=== PATIENT | male | born 1955 | race African-American/Black ===

== ENCOUNTER 2023-07-03 09:11 | Inpatient (IN) | payer OTHER, MEDICARE ==
[~2023-07-03] VITALS: Ht 195.6 cm; Wt 78.6 kg
[2023-07-03] MEDS ORDERED: ONDANSETRON HCL 4MG/2ML INJ IV STA (09:39)
[2023-07-03] MEDS ORDERED: MORPHINE SULFATE 4 MG/ML CPJ (NOT FOR IM USE) IV STA (09:39)
[2023-07-03] MEDS ORDERED: SODIUM CHLORIDE 0.9% 1,000 ML IV ONE ×3 (09:45→15:45)
[2023-07-03 12:33] LABS: HEMATOCRIT. 29.1 % (42.0-52.0); HEMOGLOBIN. 9.9 g/dL (14.0-18.0); MEAN CORPUSCULAR HEMOGLOBIN 23.4 pg (28.0-32.0); MEAN CORPUSCULAR VOLUME 68.7 fL (80.0-94.0); MEAN PLATELET VOLUME 8.2 fl (7.4-10.4); PLATELET 69 x1000/uL (130-400); RED BLOOD CELL COUNT 4.23 mill/uL (4.7-6.1); RED CELL DISTRIBUTION WIDTH 15.5 % (11.6-14.6)
[2023-07-03 12:46] LABS: DIFFERENTIAL COMMENT 1
[2023-07-03 13:43] LABS: NUCLEATED RED BLOOD CELLS 5 /100 WBC; PLATELET ESTIMATE DECREASED
[2023-07-03 13:45] LABS: ANISOCYTOSIS 2+; TARGET CELLS 1+
[2023-07-03] MEDS ORDERED: CEFTRIAXONE 1GM PREMIX 50 ML IV ONE (13:45)
[2023-07-03 15:14] LABS: ALANINE AMINOTRANSFERASE 52 IU/L (10-49); ALBUMIN 4.2 g/dL (3.2-4.8); ASPARTATE AMINOTRANSFERASE 75 IU/L (<34); CALCIUM 8.8 mg/dL (8.7-10.4); CARBON DIOXIDE 18 mEq/L (21-32); CHLORIDE 83 mEq/L (98-107); CREATININE 1.9 mg/dL (0.6-1.3); GLUCOSE 84 mg/dL (70-105); PROTEIN TOTAL 7.8 g/dL (6.0-8.3); UREA NITROGEN BLOOD 46 mg/dL (9-23)
[2023-07-03 15:21] LABS: SODIUM 117 mEq/L (136-145)
[2023-07-03] MEDS ORDERED: ACETAMINOPHEN 325MG TABLET PO PRN (17:45)
[2023-07-03] MEDS ORDERED: MORPHINE SULFATE 2 MG/ML CPJ (NOT FOR IM USE) IV PRN (17:45)
[2023-07-03] MEDS ORDERED: DIPHENHYDRAMINE 50MG/ML VIAL IV PRN (17:45)
[2023-07-03] MEDS ORDERED: MAGNESIUM/ALUMINUM HYDROXIDE/SIMETHICONE 30ML UDC PO PRN (17:45)
[2023-07-03] MEDS ORDERED: CLONIDINE 0.1MG TABLET PO PRN (17:45)
[2023-07-03] MEDS ORDERED: GUAIFENESIN 200MG/10ML SUGAR FREE UDC PO PRN (17:45)
[2023-07-03] MEDS ORDERED: ONDANSETRON HCL 4MG/2ML INJ IV PRN (17:45)
[2023-07-03] MEDS ORDERED: DOCUSATE SODIUM 100MG CAPSULE PO PRN (17:45)
[2023-07-03] MEDS ORDERED: HYDROCODONE/ACETAMINOPHEN 7.5/325MG TABLET PO PRN (18:00)
[2023-07-03] MEDS ORDERED: TRAMADOL 50MG TABLET PO PRN (18:00)
[2023-07-03] MEDS ORDERED: ENOXAPARIN 40MG/0.4ML SYR SUBCUT SCH (20:00)
[2023-07-04] MEDS: SODIUM CHLORIDE 0.9% 1,000 ML IV SCH ×3 (02:52→20:37)
[2023-07-04 05:00] VITALS: BP 97/61; PULSE 94; RESP 20; TEMP 98.4
[2023-07-04 05:03] VITALS: BP 97/61; PULSE 94; RESP 20; TEMP 98.4
[2023-07-04] MEDS ORDERED: LATA2.5D14 EACHEYE (05:06)
[2023-07-04 08:00] VITALS: BP 91/53; PULSE 89; RESP 20; TEMP 98.3
[2023-07-04] MEDS: ASPIRIN 81MG EC TABLET PO SCH (09:58)
[2023-07-04 12:00] VITALS: BP 97/61; PULSE 84; RESP 18; TEMP 97.9
[2023-07-04 12:13] LABS: CLARITY URINE CLOUDY (CLEAR); COLOR URINE YELLOW (YELLOW); GLUCOSE URINE NEGATIVE (NEGATIVE); KETONES URINE NEGATIVE (NEGATIVE); LEUKOCYTE ESTERASE URINE NEGATIVE (NEGATIVE); NITRITE URINE NEGATIVE (NEGATIVE); OCCULT BLOOD URINE 2+ (NEGATIVE); PH URINE 5.5 (4.5-8.0); PROTEIN URINE 1+ (NEGATIVE); SPECIFIC GRAVITY URINE 1.013 (1.005-1.030); UROBILINOGEN URINE 0.2 E.U./dL (0.2-1.0)
[2023-07-04] MEDS: MIDODRINE HCL 5MG TABLET PO SCH ×2 (12:17→17:16)
[2023-07-04 13:33] LABS: SQUAMOUS EPITHELIAL CELL URINE RARE /lpf (RARE/1+)
[2023-07-04 13:34] LABS: BACTERIA URINE 1+; RBC URINE 0-2 /hpf (0-2); WBC URINE 0-2 /hpf (0-2)
[2023-07-04 13:38] LABS: CLARITY URINE CLEAR (CLEAR); COLOR URINE ORANGE (YELLOW); GLUCOSE URINE NEGATIVE (NEGATIVE); KETONES URINE NEGATIVE (NEGATIVE); LEUKOCYTE ESTERASE URINE TRACE (NEGATIVE); NITRITE URINE NEGATIVE (NEGATIVE); OCCULT BLOOD URINE 3+ (NEGATIVE); PH URINE 5.5 (4.5-8.0); PROTEIN URINE 1+ (NEGATIVE); SPECIFIC GRAVITY URINE 1.011 (1.005-1.030); UROBILINOGEN URINE 0.2 E.U./dL (0.2-1.0)
[2023-07-04] MEDS ORDERED: CEFTRIAXONE 1,000 MG in DEXTROSE 5% WATER 50 ML IV SCH (14:00)
[2023-07-04 14:26] LABS: SQUAMOUS EPITHELIAL CELL URINE NONE SEEN /lpf (RARE/1+)
[2023-07-04 14:27] LABS: BACTERIA URINE 1+
[2023-07-04 16:00] VITALS: BP 95/62; PULSE 84; RESP 19; TEMP 97.9
[2023-07-04 17:30] LABS: HEMATOCRIT. 28.8 % (42.0-52.0); HEMOGLOBIN. 9.6 g/dL (14.0-18.0); MEAN CORPUSCULAR HEMOGLOBIN 23.3 pg (28.0-32.0); MEAN CORPUSCULAR HGB CONC 33.3 g/dL (31.0-37.0); MEAN CORPUSCULAR VOLUME 69.8 fL (80.0-94.0); MEAN PLATELET VOLUME 8.2 fl (7.4-10.4); PLATELET 72 x1000/uL (130-400); RED BLOOD CELL COUNT 4.13 mill/uL (4.7-6.1); RED CELL DISTRIBUTION WIDTH 15.4 % (11.6-14.6); WHITE BLOOD COUNT 11.9 x1000/uL (4.5-11.0)
[2023-07-04 17:45] LABS: DIFFERENTIAL COMMENT 1
[2023-07-04 17:54] LABS: ALANINE AMINOTRANSFERASE 55 IU/L (10-49); ALBUMIN 3.9 g/dL (3.2-4.8); ASPARTATE AMINOTRANSFERASE 142 IU/L (<34); BILIRUBIN TOTAL 2.5 mg/dL (0.1-1.0); CALCIUM 8.3 mg/dL (8.7-10.4); CARBON DIOXIDE 24 mEq/L (21-32); CHLORIDE 92 mEq/L (98-107); CHOLESTEROL 112 mg/dL (<200); CREATININE 1.8 mg/dL (0.6-1.3); GLUCOSE 87 mg/dL (70-105); HDL CHOLESTEROL 33 mg/dL (>55); LDL CHOLESTEROL 61 mg/dL (5-100); POTASSIUM 4.4 mEq/L (3.5-5.1); SODIUM 125 mEq/L (136-145); TRIGLYCERIDE 125 mg/dL (0-150); UREA NITROGEN BLOOD 51 mg/dL (9-23)
[2023-07-04 20:00] VITALS: BP 107/68; PULSE 85; RESP 18; TEMP 98.4
[2023-07-04 23:07] LABS: NUCLEATED RED BLOOD CELLS 7 /100 WBC; PLATELET ESTIMATE DECREASED
[2023-07-04 23:08] LABS: ANISOCYTOSIS 1+; HYPOCHROMASIA 1+
[2023-07-05] VITALS: BP 102/57; PULSE 77; RESP 18; TEMP 98.2
[2023-07-05 04:00] VITALS: BP 100/60; PULSE 94; RESP 18; TEMP 98.3
[2023-07-05 08:00] VITALS: BP 104/47; PULSE 87; RESP 18; TEMP 97.6
[2023-07-05] MEDS: ASPIRIN 81MG EC TABLET PO SCH (08:54)
[2023-07-05] MEDS: MIDODRINE HCL 5MG TABLET PO SCH ×3 (08:54→16:11)
[2023-07-05] MEDS: SODIUM CHLORIDE 0.9% 1,000 ML IV SCH ×2 (11:00→23:24)
[2023-07-05 11:51] VITALS: BP 132/70; PULSE 109; RESP 18; TEMP 98.4
[2023-07-05] MEDS ORDERED: CEFTRIAXONE 1,000 MG in DEXTROSE 5% WATER 50 ML IV SCH (16:00)
[2023-07-05] MEDS: CHLORPROMAZINE HCL 25 MG TABLET PO PRN (16:09)
[2023-07-05 16:10] LABS: ALANINE AMINOTRANSFERASE 40 IU/L (10-49); ALBUMIN 3.5 g/dL (3.2-4.8); ASPARTATE AMINOTRANSFERASE 76 IU/L (<34); BILIRUBIN TOTAL 1.9 mg/dL (0.1-1.0); CARBON DIOXIDE 24 mEq/L (21-32); CHLORIDE 103 mEq/L (98-107); CREATININE 1.4 mg/dL (0.6-1.3); GLUCOSE 106 mg/dL (70-105); POTASSIUM 4.3 mEq/L (3.5-5.1); PROTEIN TOTAL 6.4 g/dL (6.0-8.3); SODIUM 133 mEq/L (136-145); UREA NITROGEN BLOOD 43 mg/dL (9-23)
[2023-07-05 16:12] VITALS: BP 98/58; PULSE 85; RESP 18; TEMP 98.5
[2023-07-05 20:00] VITALS: BP 111/56; PULSE 95; RESP 18; TEMP 98.2
[2023-07-06] VITALS: BP 114/59; PULSE 88; RESP 18; TEMP 97.7
[2023-07-06 04:10] VITALS: BP 121/64; PULSE 87; RESP 18; TEMP 98
[2023-07-06 06:09] LABS: CALCIUM 8.3 mg/dL (8.7-10.4); CARBON DIOXIDE 26 mEq/L (21-32); CHLORIDE 104 mEq/L (98-107); CREATININE 1.2 mg/dL (0.6-1.3); GLUCOSE 101 mg/dL (70-105); POTASSIUM 4.5 mEq/L (3.5-5.1); SODIUM 134 mEq/L (136-145); UREA NITROGEN BLOOD 33 mg/dL (9-23)
[2023-07-06 08:00] VITALS: BP 106/63; PULSE 88; RESP 18; TEMP 98.7
[2023-07-06] MEDS: CHLORPROMAZINE HCL 25 MG TABLET PO PRN (08:24)
[2023-07-06] MEDS: ASPIRIN 81MG EC TABLET PO SCH (08:25)
[2023-07-06] MEDS: MIDODRINE HCL 5MG TABLET PO SCH ×2 (08:25→13:00)
[2023-07-06 11:14] VITALS: BP 129/63; PULSE 97; TEMP 98.4; O2SAT 100
[2023-07-06 12:00] VITALS: BP 129/63; PULSE 97; RESP 18; TEMP 98.4
== END 2023-07-06 15:16 | disposition home health service (06) | DRG 640 ==
LOC: ER 09:11 → EDBEDREQ 13:49 → EDBEDREQTM 13:49 → CANBEDREQ 14:19 → 7WST 15:31 → EDBEDREQSVC 07-04 03:49
PROVIDERS: ADMIT Hospitalist; ATTEND Hospitalist
DX: E87.1 Hypo-osmolality and hyponatremia (principal); D57.00 Hb-SS disease with crisis, unspecified; N17.9 Acute kidney failure, unspecified; C61 Malignant neoplasm of prostate; R63.1 Polydipsia; D72.825 Bandemia; D69.6 Thrombocytopenia, unspecified; I95.9 Hypotension, unspecified; Z85.46 Personal history of malignant neoplasm of prostate
CPT/HCPCS: 36415; 71045; 80048; 80053; 80061; 81003; 83935; 85025; 85044; 93970; 97162; 99285; J0696; J1650; J2270; J2405; J7030; J7060; Q0161

== ENCOUNTER 2025-06-19 01:04 | Emergency (ER) | payer OTHER, MEDICARE ==
[~2025-06-19] VITALS: Ht 195.6 cm; Wt 79.0 kg
[~2025-06-19 01:04] MED LIST: LATA2.5D7 EACHEYE
[2025-06-19 01:11] VITALS: O2SAT 100
[2025-06-19 01:28] VITALS: BP 102/64; PULSE 67; RESP 18; TEMP 36.9; O2SAT 99
[2025-06-19] MEDS ORDERED: NITR-87 MT (01:34)
[2025-06-19] MEDS ORDERED: NITR100C MT (01:38)
== END 2025-06-19 01:45 | disposition home or self-care (01) ==
LOC: ER 01:37
DX: Z76.0 Encounter for issue of repeat prescription (principal)
CPT/HCPCS: 99282